=== PATIENT | female | born 1975 | race Caucasian/White ===

== ENCOUNTER 2023-06-10 10:15 | Emergency (ER) | payer OTHER ==
[2023-06-10] MEDS: Take Home: Albuterol 18 GM Inhaler, 1 Inhaler Pack INH PRN (11:22)
[2023-06-10] MEDS: Take Home: predniSONE 20 MG, 2 Tab Pack PO ONE (11:23)
[2023-06-10] MEDS: Take Home: Doxycycline 100 MG Cap, 4 Cap Pack PO ONE (11:23)
== END 2023-06-10 11:25 | disposition home or self-care (01) ==
LOC: VM.ED 10:15
DX: J06.9 Acute upper respiratory infection, unspecified (principal); F17.210 Nicotine dependence, cigarettes, uncomplicated; Z88.0 Allergy status to penicillin; Z88.8 Allergy status to other drugs, medicaments and biological substances
CPT/HCPCS: 71045; 99283; A9270-GY; J7512